=== PATIENT | female | born 1950 | race Caucasian/White ===

== ENCOUNTER → 2016-08-07 | Outpatient (CLI) | payer MEDICARE, OTHER ==
[~2016-08-07] MED LIST: AMLO5TAB22 PO; HYDR-3580 PO; NEUR100C PO; SITA100 PO; VICT18IN SQ; ZOCO40TA PO
[2016-08-07 08:15] LABS: AUTOMATED NEUTROPHIL # 2.8 TH/MM3 (1.8-7.7); BASOPHIL % 0.1 % (0.0-2.0); EOSINOPHIL # 0.1 TH/MM3 (0-0.4); EOSINOPHIL % 1.4 % (0.0-4.0); HEMATOCRIT 34.7 % (35.0-46.0); HEMO FLAGS DIFF FINAL; LYMPH % 41.8 % (9.0-44.0); LYMPHOCYTE # 2.5 TH/MM3 (1.0-4.8); MEAN CELL VOLUME 93.4 FL (80.0-100.0); MEAN CORPUSCULAR HEMOGLOBIN 30.9 PG (27.0-34.0); MEAN CORPUSCULAR HGB CONC 33.1 % (32.0-36.0); NEUT % 47.7 % (16.0-70.0); PLATELET COUNT 219 TH/MM3 (150-450); RED BLOOD COUNT 3.71 MIL/MM3 (4.00-5.30); RED CELL DISTRIBUTION WIDTH 14.5 % (11.6-17.2); WHITE BLOOD COUNT 5.9 TH/MM3 (4.0-11.0)
[2016-08-07 08:27] LABS: BACTERIA, URINE OCC /hpf; BLOOD, URINE NEG (NEG); GLUCOSE,URINE TRACE mg/dL (NEG); KETONE, URINE NEG (NEG); MUCUS URINE FEW /lpf (OCC); NITRITE,URINE NEG (NEG); SQUAMOUS EPITHELIAL CELL URINE 1 /hpf (0-5); URINE COLOR YELLOW (YELLW/STRAW)
[2016-08-07 08:41] LABS: ALT (GPT) 20 U/L (10-53); ANION GAP 7 MEQ/L (5-15); AST (GOT) 13 U/L (15-37); BICARBONATE 29.3 MEQ/L (21.0-32.0); BLOOD UREA NITROGEN 17 MG/DL (7-18); CHLORIDE 107 MEQ/L (98-107); GLOMERULAR FILTRATION RATE 82 ML/MIN (>89); GLUCOSE,FASTING 87 MG/DL (74-99); POTASSIUM 3.4 MEQ/L (3.5-5.1); SODIUM (NA) 143 MEQ/L (136-145)
[2016-08-07 08:50] LABS: ALKALINE PHOSPHATASE 70 U/L (45-117); FREE T4 0.96 NG/DL (0.76-1.46); HDL CHOLESTEROL 55.9 MG/DL (40.0-60.0); LDL CHOLESTEROL 119 MG/DL (0-99); TOTAL BILIRUBIN ADULT 0.2 MG/DL (0.2-1.0)
[2016-08-07 11:20] LABS: HEMOGLOBIN A1a 1.3 %; HEMOGLOBIN Ao 77.8 %; HEMOGLOBIN LA1C 2.2 %; HEMOGLOBIN P3 4.5 %
== END ==
LOC: CLAB 07:37
PROVIDERS: ATTEND Internal Medicine
DX: R53.82 Chronic fatigue, unspecified (principal); E78.5 Hyperlipidemia, unspecified; R33.9 Retention of urine, unspecified; E05.90 Thyrotoxicosis, unspecified without thyrotoxic crisis or storm
CPT/HCPCS: 36415; 80053; 80061; 81001; 83036; 84439; 84443; 85025

== ENCOUNTER → 2016-09-26 | Outpatient (CLI) | payer MEDICARE, OTHER ==
[2016-09-26 09:46] LABS: AUTOMATED NEUTROPHIL # 2.7 TH/MM3 (1.8-7.7); BASOPHIL % 0.2 % (0.0-2.0); EOSINOPHIL # 0.1 TH/MM3 (0-0.4); EOSINOPHIL % 1.9 % (0.0-4.0); HEMATOCRIT 35.2 % (35.0-46.0); HEMO FLAGS DIFF FINAL; LYMPH % 32.5 % (9.0-44.0); LYMPHOCYTE # 1.6 TH/MM3 (1.0-4.8); MEAN CELL VOLUME 93.8 FL (80.0-100.0); MEAN CORPUSCULAR HEMOGLOBIN 31.1 PG (27.0-34.0); MEAN CORPUSCULAR HGB CONC 33.2 % (32.0-36.0); MONO % 10.3 % (0.0-8.0); NEUT % 55.1 % (16.0-70.0); PLATELET COUNT 223 TH/MM3 (150-450); RED BLOOD COUNT 3.76 MIL/MM3 (4.00-5.30); RED CELL DISTRIBUTION WIDTH 14.3 % (11.6-17.2); WHITE BLOOD COUNT 4.8 TH/MM3 (4.0-11.0)
[2016-09-26 10:33] LABS: ALKALINE PHOSPHATASE 81 U/L (45-117); ALT (GPT) 22 U/L (10-53); ANION GAP 8 MEQ/L (5-15); AST (GOT) 15 U/L (15-37); BICARBONATE 26.8 MEQ/L (21.0-32.0); BLOOD UREA NITROGEN 16 MG/DL (7-18); CHLORIDE 107 MEQ/L (98-107); GLOMERULAR FILTRATION RATE 76 ML/MIN (>89); GLUCOSE,FASTING 131 MG/DL (74-99); POTASSIUM 3.8 MEQ/L (3.5-5.1); SODIUM (NA) 142 MEQ/L (136-145); TOTAL BILIRUBIN ADULT 0.2 MG/DL (0.2-1.0)
[2016-09-26 11:07] LABS: WESTERGREN SEDIMENTATION RATE 31 mm/hr (0-30)
== END ==
LOC: CLAB 09:06
PROVIDERS: ATTEND Allergy & Immunology
DX: M05.741 Rheumatoid arthritis with rheumatoid factor of right hand without organ or systems involvement (principal)
CPT/HCPCS: 36415; 80053; 85025; 85652; 86140

== ENCOUNTER → 2016-11-13 | Outpatient (CLI) | payer MEDICARE, OTHER ==
[2016-11-13 07:44] LABS: AUTOMATED NEUTROPHIL # 3.2 TH/MM3 (1.8-7.7); BASOPHIL % 0.2 % (0.0-2.0); EOSINOPHIL # 0.1 TH/MM3 (0-0.4); EOSINOPHIL % 0.9 % (0.0-4.0); HEMATOCRIT 35.7 % (35.0-46.0); HEMO FLAGS DIFF FINAL; LYMPH % 35.6 % (9.0-44.0); LYMPHOCYTE # 2.1 TH/MM3 (1.0-4.8); MEAN CELL VOLUME 93.6 FL (80.0-100.0); MEAN CORPUSCULAR HEMOGLOBIN 30.3 PG (27.0-34.0); MEAN CORPUSCULAR HGB CONC 32.3 % (32.0-36.0); MONO % 9.2 % (0.0-8.0); NEUT % 54.1 % (16.0-70.0); PLATELET COUNT 255 TH/MM3 (150-450); RED BLOOD COUNT 3.81 MIL/MM3 (4.00-5.30); WHITE BLOOD COUNT 5.9 TH/MM3 (4.0-11.0)
[2016-11-13 07:56] LABS: BLOOD, URINE NEG (NEG); GLUCOSE,URINE NEG (NEG); KETONE, URINE NEG (NEG); MUCUS URINE FEW /lpf (OCC); NITRITE,URINE NEG (NEG); SQUAMOUS EPITHELIAL CELL URINE <1 /hpf (0-5); URINE COLOR YELLOW (YELLW/STRAW)
[2016-11-13 08:10] LABS: ALT (GPT) 19 U/L (10-53); ANION GAP 6 MEQ/L (5-15); AST (GOT) 10 U/L (15-37); BICARBONATE 30.5 MEQ/L (21.0-32.0); BLOOD UREA NITROGEN 15 MG/DL (7-18); CHLORIDE 108 MEQ/L (98-107); GLOMERULAR FILTRATION RATE 82 ML/MIN (>89); GLUCOSE,FASTING 121 MG/DL (74-99); POTASSIUM 4.2 MEQ/L (3.5-5.1); SODIUM (NA) 144 MEQ/L (136-145)
[2016-11-13 08:18] LABS: ALKALINE PHOSPHATASE 79 U/L (45-117); FREE T4 1.08 NG/DL (0.76-1.46); HDL CHOLESTEROL 46.7 MG/DL (40.0-60.0); LDL CHOLESTEROL 98 MG/DL (0-99); TOTAL BILIRUBIN ADULT 0.2 MG/DL (0.2-1.0)
[2016-11-13 16:54] LABS: HEMOGLOBIN A1a 1.3 %; HEMOGLOBIN A1b 0.9 %; HEMOGLOBIN Ao 81.4 %; HEMOGLOBIN F 1.7 %; HEMOGLOBIN P3 4.4 %
== END ==
LOC: CLAB 07:00
PROVIDERS: ATTEND Internal Medicine
DX: E11.8 Type 2 diabetes mellitus with unspecified complications (principal); E03.9 Hypothyroidism, unspecified; E78.00 Pure hypercholesterolemia, unspecified
CPT/HCPCS: 36415; 80053; 80061; 81001; 83036; 84439; 84443; 85025; 86803

== ENCOUNTER → 2017-01-03 | Outpatient (CLI) | payer MEDICARE, OTHER ==
[~2017-01-03] MED LIST changes: +LOSA100T PO; +PIOG30TA4 PO
[2017-01-03 08:26] LABS: BACTERIA, URINE RARE /hpf; BLOOD, URINE NEG (NEG); GLUCOSE,URINE NEG (NEG); KETONE, URINE NEG (NEG); MUCUS URINE FEW /lpf (OCC); NITRITE,URINE NEG (NEG); PH, URINE 5.5 (5.0-8.5); SQUAMOUS EPITHELIAL CELL URINE <1 /hpf (0-5); URINE COLOR YELLOW (YELLW/STRAW)
[2017-01-03 08:31] LABS: AUTOMATED NEUTROPHIL # 2.8 TH/MM3 (1.8-7.7); BASOPHIL % 0.3 % (0.0-2.0); EOSINOPHIL # 0.1 TH/MM3 (0-0.4); EOSINOPHIL % 1.7 % (0.0-4.0); HEMATOCRIT 35.4 % (35.0-46.0); HEMO FLAGS DIFF FINAL; LYMPH % 35.8 % (9.0-44.0); LYMPHOCYTE # 1.9 TH/MM3 (1.0-4.8); MEAN CELL VOLUME 93.6 FL (80.0-100.0); MEAN CORPUSCULAR HEMOGLOBIN 31.9 PG (27.0-34.0); MEAN CORPUSCULAR HGB CONC 34.1 % (32.0-36.0); MONO % 9.7 % (0.0-8.0); NEUT % 52.5 % (16.0-70.0); PLATELET COUNT 229 TH/MM3 (150-450); RED BLOOD COUNT 3.78 MIL/MM3 (4.00-5.30); RED CELL DISTRIBUTION WIDTH 14.2 % (11.6-17.2); WHITE BLOOD COUNT 5.3 TH/MM3 (4.0-11.0)
[2017-01-03 08:47] LABS: RHEUMATOID FACTOR TRIGGER 43.2 IU/ML (0.0-14.9)
[2017-01-03 08:48] LABS: ALT (GPT) 18 U/L (10-53); ANION GAP 6 MEQ/L (5-15); AST (GOT) 10 U/L (15-37); BLOOD UREA NITROGEN 15 MG/DL (7-18); CHLORIDE 105 MEQ/L (98-107); GLOMERULAR FILTRATION RATE 78 ML/MIN (>89); GLUCOSE,FASTING 99 MG/DL (74-99); SODIUM (NA) 140 MEQ/L (136-145)
[2017-01-03 08:51] LABS: ALKALINE PHOSPHATASE 87 U/L (45-117); TOTAL BILIRUBIN ADULT 0.2 MG/DL (0.2-1.0)
[2017-01-03 10:13] LABS: WESTERGREN SEDIMENTATION RATE 42 mm/hr (0-30)
[2017-01-03 11:13] LABS: ANA SCREEN POS (NEG)
[2017-01-03 15:48] LABS: HEMOGLOBIN A1a 1.4 %; HEMOGLOBIN A1b 0.9 %; HEMOGLOBIN Ao 81.6 %; HEMOGLOBIN F 1.6 %; HEMOGLOBIN P3 4.3 %
== END ==
LOC: CLAB 01-02 10:03
PROVIDERS: ATTEND Allergy & Immunology
DX: E11.9 Type 2 diabetes mellitus without complications (principal); D50.9 Iron deficiency anemia, unspecified; I10 Essential (primary) hypertension; M05.741 Rheumatoid arthritis with rheumatoid factor of right hand without organ or systems involvement; R20.2 Paresthesia of skin; R76.8 Other specified abnormal immunological findings in serum; R70.0 Elevated erythrocyte sedimentation rate; Z79.891 Long term (current) use of opiate analgesic
CPT/HCPCS: 36415; 80053; 81001; 83036; 85025; 85652; 86038; 86039; 86140; 86200; 86430

== ENCOUNTER 2017-02-11 11:53 | Emergency (ER) | payer MEDICARE, OTHER ==
[~2017-02-11] VITALS: Ht 157.5 cm; Wt 68.0 kg
[~2017-02-11 11:53] MED LIST changes: -LOSA100T PO; -PIOG30TA4 PO
[2017-02-11 11:55] VITALS: BP 195/87; PULSE 75; RESP 17; TEMP 98.4; O2SAT 98
[2017-02-11 12:10] VITALS: BP 184/80; PULSE 77; RESP 16; O2SAT 98
[2017-02-11] MEDS ORDERED: VICT18IN SQ (12:17)
[2017-02-11] MEDS ORDERED: PIOG30TA4 PO (12:17)
[2017-02-11] MEDS ORDERED: LOSA100T PO (12:17)
--- NOTE | 2017-02-11 12:43 | PD ---
HPI Chief Complaint: Fall Time Seen by Provider: 12:23 Travel History International Travel<30 days: No Contact w/Intl Traveler<30days: No Traveled to known affect area: No History of Present Illness HPI 66-year-old female presents to the emergency department for evaluation after she tripped and fell 9 days ago. She states she fell and hit her head and chest against the concrete. She states she has been having headache and left- sided chest pain as well as midsternal chest pain since the fall. It is worse with movement. Patient states she fell the pain would go away, but she is still having pain so she decided to come the emergency department. She believes she did lose consciousness during the fall. She states she has history of diabetes. She is not currently on anticoagulants and has no bleeding disorders. She denies any neck pain or back pain. No abdominal pain. Nausea, vomiting, diarrhea. She has been ambulatory since the fall. She is taking Tylenol at home without relief. PFSH Past Medical History Asthma: Yes Cancer: No Cardiovascular Problems: Yes Diabetes: Yes Patient Takes Glucophage: No Diminished Hearing: No Genitourinary: No Hypertension: Yes Immune Disorder: No Implanted Vascular Access Dvce: Yes (spinal cord stimulator) Musculoskeletal: Yes (CHRONIC BACK PAIN, SPINAL FUSION JULY 2013) Psychiatric: No Reproductive: No Respiratory: Yes Immunizations Current: Yes Influenza Vaccination: No Menopausal: Yes Past Surgical History Abdominal Surgery: Yes (UMBILICAL HERNIA REPAIR) Appendectomy: Yes Body Medical Devices: bone fusion stimulator Gynecologic Surgery: Yes Hysterectomy: Yes Neurologic Surgery: Yes (C-SPINE FUSION) Other Surgery: Yes (SURG ON JAW BILAT) Social History Alcohol Use: No Tobacco Use: No Substance Use: No Allergies-Medications (Allergen,Severity, Reaction): Coded Allergies: Sulfa (Sulfonamide Antibiotics) (Unverified Allergy, Severe, "RAPID HEART RATE", 02/11/17) Reported Meds & Prescriptions Reported Meds & Active Scripts Active Reported Pioglitazone (Pioglitazone HCl) 30 Mg Tab 30 Mg PO DAILY Losartan (Losartan Potassium) 100 Mg Tab 100 Mg PO DAILY Victoza Inj (Liraglutide Inj) 18 Mg/3 Ml Pen 0.6 Mg SQ HS Review of Systems Except as stated in HPI: all other systems reviewed are Neg Physical Exam Narrative GENERAL: Well-nourished, well-developed female patient, ambulatory. Afebrile. SKIN: Focused skin assessment warm/dry. No ecchymosis. No lacerations or abrasions. HEAD: Normocephalic. Atraumatic. Patient does have tenderness over left forehead. EYES: No scleral icterus. No injection or drainage. ENT: Mucosa pink and moist. No erythema or exudates. No uvular edema. No uvular , palatal, or tonsillar deviation. Airway patent. Nasal turbinates appear normal without nasal blood, purulent drainage or septal hematoma. Bilateral tympanic membranes are clear without erythema or perforation. NECK: Supple, trachea midline. No JVD or lymphadenopathy. CARDIOVASCULAR: Regular rate and rhythm without murmurs, gallops, or rubs. RESPIRATORY: Breath sounds equal bilaterally. No accessory muscle use. Lungs sounds are clear to auscultation. GASTROINTESTINAL: Abdomen soft, non-tender, nondistended. No abdominal pain to palpation. MUSCULOSKELETAL: No cyanosis, or edema. Patient has tenderness over left sided ribs, sternum. BACK: Nontender without obvious deformity. No CVA tenderness. No midline spinal tenderness. She has full range of motion of cervical spine without pain or stiffness. Data Data Last Documented VS Vital Signs Date Time Temp Pulse Resp B/P (MAP) Pulse Ox O2 Delivery O2 Flow Rate FiO2 02/11/17 12:10 77 16 184/80 (114) 98 Room Air 02/11/17 11:55 98.4 Orders Orders Chest, Single Ap (02/11/17 ) Sternum - Min 2 Vws (02/11/17 ) Ct Brain W/O Iv Contrast(Rout) (02/11/17 ) [facility] Medical Decision Making Medical Screen Exam Complete: Yes Emergency Medical Condition: Yes Medical Record Reviewed: Yes Interpretation(s) Last Impressions Sternum X-Ray 02/11/17 0000 Signed Impressions: Service Date/Time: Saturday, February 11, 2017 13:10 - CONCLUSION: 1. No apparent sternal fracture or dislocation. Alvaro Hernandez MD Head CT 02/11/17 0000 Signed Impressions: Service Date/Time: Saturday, February 11, 2017 12:59 - CONCLUSION: 1. No acute intracranial abnormality. Alvaro Hernandez MD Chest X-Ray 02/11/17 0000 Signed Impressions: Service Date/Time: Saturday, February 11, 2017 13:08 - CONCLUSION: 1. No acute cardiopulmonary disease. Specifically, no significantly displaced left-sided rib fractures or pneumothorax. Alvaro Hernandez MD Differential Diagnosis Closed head injury versus intracranial abnormality versus rib fracture versus rib contusion versus pneumothorax versus sternal fracture Narrative Course 66-year-old female presents to the emergency department for evaluation of continued head pain and rib pain after a trip and fall [address] of the brain is ordered and pending. X-ray of the chest and sternum are ordered and pending. CT of the brain shows no acute intracranial normality. Chest x-ray shows no acute cardiopulmonary disease, specifically, no significant displaced left- sided rib fractures or pneumothorax. Sternal x-ray shows no apparent sternal fracture or dislocation. Patient is instructed to use heating pad on low, Tylenol [id number] follow -up with her primary care physician. She verbalizes agreement and understanding. The patient was discharged in stable condition with instructions, including return instructions and follow up instructions. Diagnosis Primary Impression: Closed head injury Qualified Codes: S09.90XA - Unspecified injury of head, initial encounter Additional Impressions: Rib contusion Qualified Codes: S20.212A - Contusion of left front wall of thorax, initial encounter Fall Qualified Codes: W19.XXXA - Unspecified fall, initial encounter Referrals: Primary Care Physician call for appointment Patient Instructions: General Instructions, Head Injury (ED), Rib Contusion (ED ) Additional Instructions: Heating pad on low for 20 minutes 4-5 times daily. [id number] Tylenol every 4 hours as needed for pain. Follow-up with your primary care physician. Return to the emergency department for any acute worsening of symptoms. Med/Other Pt SpecificInfo: No Change to Meds Disposition: 01 DISCHARGE HOME Condition: Stable Hima,Shanon DIEHL Feb 11, 2017 12:43
--- NOTE | 2017-02-11 13:32 | RADRPT ---
EXAM DATE/TIME: 02/11/2017 12:59 [facility] COMPARISON: No previous studies available for comparison. INDICATIONS : Fall, swelling to forehead. RADIATION DOSE: 30.18 CTDIvol (mGy) MEDICAL HISTORY : Cardiovascular disease. Hypertension. Diabetes SURGICAL HISTORY : Appendectomy. Hysterectomy.Spinal cord stimulator. Cervical fusion. ENCOUNTER: Initial ACUITY: 1 week PAIN SCALE: 7/10 LOCATION: Left cranial TECHNIQUE: Multiple contiguous axial images were obtained of the head. Using automated exposure control and adj ustment of the mA and/or kV according to patient size, radiation dose was kept as low as reasonably a chievable to obtain optimal diagnostic quality images. DICOM format image data is available electro nically for review and comparison. FINDINGS: CEREBRUM: The ventricles are normal for age. No evidence of midline shift, mass lesion, hemorrhage or acute in farction. No extra-axial fluid collections are seen. POSTERIOR FOSSA: The cerebellum and brainstem are intact. The 4th ventricle is midline. The cerebellopontine angle i s unremarkable. EXTRACRANIAL: The visualized portion of the orbits is intact. SKULL: The calvaria is intact. No evidence of skull fracture. CONCLUSION: 1. No acute intracranial abnormality. Alvaro Hernandez MD on February 11, 2017 at 13:30 Board Certified Radiologist. This report was verified electronically.
--- NOTE | 2017-02-11 13:36 | RADRPT ---
EXAM DATE/TIME: 02/11/2017 13:10 [facility] COMPARISON: No previous studies available for comparison. INDICATIONS : Left side chest pain post fall over one week ago. MEDICAL HISTORY : None. SURGICAL HISTORY : None. ENCOUNTER: Initial ACUITY: 1 week PAIN SCORE: 9/10 LOCATION: Left sternum. FINDINGS: Two-view examination of the sternum demonstrates no evidence of fracture or dislocation. The sternom anubrial and sternoclavicular joints appear intact. The retrosternal soft tissues are normal in thic kness. CONCLUSION: 1. No apparent sternal fracture or dislocation. Alvaro Hernandez MD on February 11, 2017 at 13:34 Board Certified Radiologist. This report was verified electronically.
--- NOTE | 2017-02-11 13:36 | RADRPT ---
EXAM DATE/TIME: 02/11/2017 13:08 [facility] COMPARISON: No previous studies available for comparison. INDICATIONS : Left side rib and chest pain post fall over one week ago. MEDICAL HISTORY : None. SURGICAL HISTORY : None. ENCOUNTER: Initial ACUITY: 1 week PAIN SCORE: 9/10 LOCATION: Left chest. FINDINGS: A single view of the chest demonstrates the lungs to be symmetrically aerated without evidence of mas s, infiltrate or effusion. The cardiomediastinal contours are unremarkable. Osseous structures are intact. CONCLUSION: 1. No acute cardiopulmonary disease. Specifically, no significantly displaced left-sided rib fracture s or pneumothorax. Alvaro Hernandez MD on February 11, 2017 at 13:34 Board Certified Radiologist. This report was verified electronically.
[2017-02-11 14:15] VITALS: BP 128/62; PULSE 73; RESP 16; O2SAT 98
== END 2017-02-11 14:17 | disposition home or self-care (01) ==
LOC: NEPC 11:53
DX: S09.90XA Unspecified injury of head, initial encounter (principal); S20.212A Contusion of left front wall of thorax, initial encounter; E11.9 Type 2 diabetes mellitus without complications; J45.909 Unspecified asthma, uncomplicated; I10 Essential (primary) hypertension; W01.198A Fall on same level from slipping, tripping and stumbling with subsequent striking against other object, initial encounter; Y93.01 Activity, walking, marching and hiking; Y92.009 Unspecified place in unspecified non-institutional (private) residence as the place of occurrence of the external cause
CPT/HCPCS: 70450; 71010; 71120; 99285

== ENCOUNTER → 2017-02-21 | Outpatient (CLI) | payer MEDICARE, OTHER ==
[~2017-02-21] MED LIST changes: -AMLO5TAB22 PO; -HYDR-3580 PO; +LOSA100T PO; -NEUR100C PO; +PIOG30TA4 PO; -SITA100 PO; -ZOCO40TA PO
[2017-02-21 09:05] LABS: AUTOMATED NEUTROPHIL # 3.3 TH/MM3 (1.8-7.7); BASOPHIL % 0.1 % (0.0-2.0); EOSINOPHIL # 0.1 TH/MM3 (0-0.4); EOSINOPHIL % 1.4 % (0.0-4.0); HEMATOCRIT 36.1 % (35.0-46.0); HEMO FLAGS DIFF FINAL; LYMPH % 34.7 % (9.0-44.0); LYMPHOCYTE # 2.1 TH/MM3 (1.0-4.8); MEAN CELL VOLUME 94.3 FL (80.0-100.0); MEAN CORPUSCULAR HEMOGLOBIN 31.3 PG (27.0-34.0); MEAN CORPUSCULAR HGB CONC 33.2 % (32.0-36.0); MONO % 9.5 % (0.0-8.0); NEUT % 54.3 % (16.0-70.0); PLATELET COUNT 266 TH/MM3 (150-450); RED BLOOD COUNT 3.83 MIL/MM3 (4.00-5.30); RED CELL DISTRIBUTION WIDTH 14.2 % (11.6-17.2); WHITE BLOOD COUNT 6.2 TH/MM3 (4.0-11.0)
[2017-02-21 09:10] LABS: BACTERIA, URINE RARE /hpf; BLOOD, URINE NEG (NEG); COMMENT (UR) CULT NOT INDICATED; CULTURE IF INDICATED CULT NOT INDICATED; GLUCOSE,URINE 150 mg/dL (NEG); KETONE, URINE NEG (NEG); MUCUS URINE FEW /lpf (OCC); NITRITE,URINE NEG (NEG); PH, URINE 5.5 (5.0-8.5); SQUAMOUS EPITHELIAL CELL URINE 1 /hpf (0-5); URINE COLOR YELLOW (YELLW/STRAW)
[2017-02-21 10:45] LABS: ANION GAP 5 MEQ/L (5-15); AST (GOT) 10 U/L (15-37); BICARBONATE 29.2 MEQ/L (21.0-32.0); BLOOD UREA NITROGEN 13 MG/DL (7-18); CHLORIDE 106 MEQ/L (98-107); GLOMERULAR FILTRATION RATE 98 ML/MIN (>89); GLUCOSE,FASTING 143 MG/DL (74-99); POTASSIUM 3.6 MEQ/L (3.5-5.1); SODIUM (NA) 140 MEQ/L (136-145)
[2017-02-21 10:50] LABS: ALKALINE PHOSPHATASE 102 U/L (45-117); ALT (GPT) 15 U/L (10-53); TOTAL BILIRUBIN ADULT 0.2 MG/DL (0.2-1.0)
[2017-02-21 12:01] LABS: HEMOGLOBIN A1a 1.6 %; HEMOGLOBIN A1b 0.9 %; HEMOGLOBIN Ao 80.2 %; HEMOGLOBIN F 1.7 %; HEMOGLOBIN LA1C 2.3 %; HEMOGLOBIN P3 4.4 %
== END ==
LOC: CLAB 08:14
PROVIDERS: ATTEND Internal Medicine
DX: I10 Essential (primary) hypertension (principal); E11.9 Type 2 diabetes mellitus without complications; D50.9 Iron deficiency anemia, unspecified
CPT/HCPCS: 36415; 80053; 81001; 83036; 85025

== ENCOUNTER → 2017-05-02 | Outpatient (CLI) | payer MEDICARE, OTHER ==
[2017-05-02 09:08] LABS: AUTOMATED NEUTROPHIL # 2.4 TH/MM3 (1.8-7.7); BASOPHIL % 0.1 % (0.0-2.0); EOSINOPHIL # 0.1 TH/MM3 (0-0.4); EOSINOPHIL % 1.3 % (0.0-4.0); HEMATOCRIT 35.9 % (35.0-46.0); HEMO FLAGS DIFF FINAL; LYMPH % 38.1 % (9.0-44.0); LYMPHOCYTE # 1.8 TH/MM3 (1.0-4.8); MEAN CELL VOLUME 94.3 FL (80.0-100.0); MEAN CORPUSCULAR HEMOGLOBIN 30.4 PG (27.0-34.0); MEAN CORPUSCULAR HGB CONC 32.3 % (32.0-36.0); MONO % 10.5 % (0.0-8.0); PLATELET COUNT 231 TH/MM3 (150-450); RED BLOOD COUNT 3.81 MIL/MM3 (4.00-5.30); RED CELL DISTRIBUTION WIDTH 14.3 % (11.6-17.2); WHITE BLOOD COUNT 4.7 TH/MM3 (4.0-11.0)
[2017-05-02 09:11] LABS: BLOOD, URINE NEG (NEG); GLUCOSE,URINE NEG (NEG); KETONE, URINE NEG (NEG); MUCUS URINE FEW /lpf (OCC); NITRITE,URINE NEG (NEG); PH, URINE 5.5 (5.0-8.5); SQUAMOUS EPITHELIAL CELL URINE <1 /hpf (0-5); URINE COLOR YELLOW (YELLW/STRAW)
[2017-05-02 09:36] LABS: ANION GAP 6 MEQ/L (5-15); AST (GOT) 14 U/L (15-37); BICARBONATE 29.1 MEQ/L (21.0-32.0); BLOOD UREA NITROGEN 17 MG/DL (7-18); CHLORIDE 106 MEQ/L (98-107); GLOMERULAR FILTRATION RATE 74 ML/MIN (>89); GLUCOSE,FASTING 104 MG/DL (74-99); POTASSIUM 3.8 MEQ/L (3.5-5.1); SODIUM (NA) 141 MEQ/L (136-145)
[2017-05-02 09:48] LABS: ALKALINE PHOSPHATASE 79 U/L (45-117); ALT (GPT) 16 U/L (10-53); HDL CHOLESTEROL 52.6 MG/DL (40.0-60.0); LDL CHOLESTEROL 94 MG/DL (0-99); TOTAL BILIRUBIN ADULT 0.3 MG/DL (0.2-1.0)
[2017-05-02 12:27] LABS: HEMOGLOBIN A1a 1.4 %; HEMOGLOBIN Ao 80.7 %; HEMOGLOBIN F 1.7 %; HEMOGLOBIN P3 4.4 %
== END ==
LOC: CLAB 07:55
PROVIDERS: ATTEND Internal Medicine
DX: E78.00 Pure hypercholesterolemia, unspecified (principal); I10 Essential (primary) hypertension; E11.9 Type 2 diabetes mellitus without complications
CPT/HCPCS: 36415; 80053; 80061; 81001; 83036; 85025

== ENCOUNTER → 2017-08-03 | Outpatient (CLI) | payer MEDICARE, OTHER ==
[2017-08-03 08:37] LABS: AUTOMATED NEUTROPHIL # 3.6 TH/MM3 (1.8-7.7); BASOPHIL % 0.1 % (0.0-2.0); EOSINOPHIL # 0.1 TH/MM3 (0-0.4); EOSINOPHIL % 0.8 % (0.0-4.0); HEMATOCRIT 36.3 % (35.0-46.0); HEMOGLOBIN 12.3 GM/DL (11.6-15.3); LYMPH % 34.5 % (9.0-44.0); LYMPHOCYTE # 2.2 TH/MM3 (1.0-4.8); MEAN CELL VOLUME 93.1 FL (80.0-100.0); MEAN CORPUSCULAR HEMOGLOBIN 31.6 PG (27.0-34.0); MEAN PLATELET VOLUME 8.4 FL (7.0-11.0); MONO % 8.1 % (0.0-8.0); MONOCYTE # 0.5 TH/MM3 (0-0.9); NEUT % 56.5 % (16.0-70.0); PLATELET COUNT 279 TH/MM3 (150-450); RED CELL DISTRIBUTION WIDTH 14.7 % (11.6-17.2); WHITE BLOOD COUNT 6.4 TH/MM3 (4.0-11.0)
[2017-08-03 08:56] LABS: BILIRUBIN, URINE NEG (NEG); BLOOD, URINE NEG (NEG); GLUCOSE,URINE TRACE mg/dL (NEG); KETONE, URINE NEG (NEG); MUCUS URINE FEW /lpf (OCC); NITRITE,URINE NEG (NEG); PH, URINE 5.5 (5.0-8.5); SQUAMOUS EPITHELIAL CELL URINE 1 /hpf (0-5); URINE COLOR YELLOW (YELLW/STRAW); URINE LEUKOCYTE ESTERASE SMALL (NEG)
[2017-08-03 08:58] LABS: ALT (GPT) 18 U/L (10-53); CHOLESTEROL 193 MG/DL (120-200); TRIGLYCERIDES 84 MG/DL (42-150)
[2017-08-03 08:59] LABS: ALBUMIN 3.6 GM/DL (3.4-5.0); AST (GOT) 11 U/L (15-37); BICARBONATE 28.7 MEQ/L (21.0-32.0); BLOOD UREA NITROGEN 14 MG/DL (7-18); CALCIUM 9.2 MG/DL (8.5-10.1); CHLORIDE 103 MEQ/L (98-107); CREATININE 0.78 MG/DL (0.50-1.00); GLOMERULAR FILTRATION RATE 73 ML/MIN (>89); GLUCOSE,FASTING 163 MG/DL (74-99); SODIUM (NA) 138 MEQ/L (136-145)
[2017-08-03 09:01] LABS: ALKALINE PHOSPHATASE 100 U/L (45-117); CHOLESTEROL/ HDL RATIO 3.29 RATIO; HDL CHOLESTEROL 58.5 MG/DL (40.0-60.0); LDL CHOLESTEROL 118 MG/DL (0-99); TOTAL BILIRUBIN ADULT 0.2 MG/DL (0.2-1.0)
[2017-08-03 16:57] LABS: HEMOGLOBIN A1C 9.7 % (4.3-6.0)
== END ==
LOC: CLAB 08:00
PROVIDERS: ATTEND Internal Medicine
DX: I10 Essential (primary) hypertension (principal); E11.9 Type 2 diabetes mellitus without complications; E78.00 Pure hypercholesterolemia, unspecified; Z11.59 Encounter for screening for other viral diseases
CPT/HCPCS: 36415; 80053; 80061; 81001; 82043; 83036; 85025; 86803